=== PATIENT | male | born 1990 | race Two or more races ===

== ENCOUNTER 2018-07-28 17:04 | Emergency (ER) | payer SELFPAY ==
[~2018-07-28] VITALS: Ht 167.6 cm; Wt 104.3 kg
[2018-07-28 17:21] VITALS: BP 152/77
[2018-07-28] MEDS: KETOROLAC TROMETH 60MG/2ML VIAL IM ONE (18:50)
== END 2018-07-28 19:06 | disposition home or self-care (01) ==
LOC: ER 17:12
DX: M23.92 Unspecified internal derangement of left knee (principal)
CPT/HCPCS: 73562 ×2; 96372 ×2; 99283; J1885 ×2

== ENCOUNTER 2019-02-05 15:28 | Emergency (ER) | payer MEDICAID ==
[~2019-02-05] VITALS: Ht 167.6 cm; Wt 104.3 kg
[2019-02-05 16:09] LABS: Basophils # (auto) 0 uL; Basophils % (auto) 0.3 % (0.0-2.0); Eosinophils # (auto) 0.2 uL; Eosinophils % (auto) 1.3 % (0.0-7.0); Hematocrit 48.6 % (41.0-53.0); Hemoglobin 16.6 g/dL (13.5-17.5); Lymphocytes # (auto) 2.2 uL; Lymphocytes % (auto) 15.8 % (10.0-50.0); Mean Corpuscular Hemoglobin 31.6 pg (28.0-32.0); Mean Corpuscular Hgb Conc. 34.2 g/dL (32.0-36.0); Mean Corpuscular Volume 92.4 fL (80.0-100.0); Monocytes # (auto) 0.9 uL; Monocytes % (auto) 6.5 % (0.0-12.0); Neutrophils # (auto) 10.8 uL; Neutrophils % (auto) 76.1 % (37.0-80.0); Nucleated Red Blood Cells % 0.1 %; Platelet Count (auto) 266 10^3/uL (140-450); Red Blood Cells 5.26 10^6/uL (4.5-5.90); White Blood Cell 14.2 10^3/uL (4.4-10.8)
[2019-02-05 16:17] LABS: Albumin 3.7 g/dL (3.4-5.0); Calcium 8.4 mg/dL (8.5-10.1); Potassium 3.4 mmol/L (3.5-5.1)
[2019-02-05 16:20] LABS: BUN/Creatinine Ratio 13.6; Bilirubin, Total 1.3 mg/dL (0.2-1.0); Total Protein 7.7 g/dL (6.4-8.2)
[2019-02-05] MEDS ORDERED: SODIUM CHLORIDE 0.9% 1,000 ML IVB ONE (17:06)
[2019-02-05] MEDS ORDERED: PROMETHAZINE HCL 25 MG/ML 1ML IV PRN (17:15)
[2019-02-05] MEDS ORDERED: KETOROLAC TROMETH 15 mg/ml 1ML VL IV ONE (17:15)
[2019-02-05] MEDS ORDERED: methylPREDNISolone SOD SUCC 125 MG/2 ML VL ONE (18:14)
[2019-02-05] MEDS ORDERED: diphenhdrAMINE HCL 50 MG/1 ML VL ONE (18:14)
[2019-02-05] MEDS ORDERED: methylPREDNISolone SOD SUCC 125 MG/2 ML VL IV ONE (18:45)
[2019-02-05] MEDS ORDERED: diphenhdrAMINE HCL 50 MG/1 ML VL IV ONE (18:45)
[2019-02-05 19:23] LABS: Urine Bacteria NONE SEEN /hpf (None Seen); Urine Blood Negative /uL (Negative); Urine Mucus FEW (None Seen); Urine Specific Gravity 1.036 (1.001-1.035); Urine WBC 3 /hpf (0 - 3)
[2019-02-05 19:26] LABS: Alcohol, Urine < 3.0 mg/dL (0-5); Amphetamine Screen, Urine NEGATIVE (NEGATIVE); Barbiturate Scree,Urine NEGATIVE (NEGATIVE); Benzodiazephine Screen, Urine NEGATIVE (NEGATIVE); Cannabinoid Screen, Urine POSITIVE (NEGATIVE); Cocaine Screen, Urine NEGATIVE (NEGATIVE); Opiate Scree,Urine NEGATIVE (NEGATIVE); Phencyclidine Screen, Urine NEGATIVE (NEGATIVE)
[2019-02-05] MEDS ORDERED: FAMOTIDINE (10MG/ML) 2ML VL IV ONE (21:15)
[2019-02-05 21:52] VITALS: BP 135/81
== END 2019-02-05 21:52 | disposition home or self-care (01) ==
LOC: ER 15:28
DX: K29.70 Gastritis, unspecified, without bleeding (principal); L50.9 Urticaria, unspecified; F12.10 Cannabis abuse, uncomplicated
CPT/HCPCS: 36415; 74176; 80053; 80307; 81001; 82150; 83690; 85025; 94761; 96361; 96374; 96375; 99284; J1200; J2930; J3490; J7030

== ENCOUNTER 2024-02-28 09:07 | Emergency (ER) | payer MEDICAID ==
[~2024-02-28] VITALS: Ht 152.4 cm; Wt 101.9 kg
[2024-02-28 10:44] VITALS: TEMP 98.9
[2024-02-28] MEDS ORDERED: OMEP20TA PO (11:35)
[2024-02-28 11:55] VITALS: BP 123/71; PULSE 93; RESP 16; O2SAT 98
[2024-02-28] MEDS: MAALOX PLUS or MAALOX 30 ML PO ONE (11:56)
[2024-02-28] MEDS: FAMOTIDINE 20 MG TAB PO ONE (11:57)
[2024-02-28] MEDS: ONDANSETRON ODT 4 MG TAB PO ONE (11:57)
== END 2024-02-28 12:04 | disposition home or self-care (01) ==
LOC: ER 09:07
DX: K21.9 Gastro-esophageal reflux disease without esophagitis (principal); R10.13 Epigastric pain; R11.0 Nausea; F15.90 Other stimulant use, unspecified, uncomplicated
CPT/HCPCS: 99284; Q0162